=== PATIENT | male | born 1940 | race Caucasian/White ===

== ENCOUNTER 2017-12-03 13:03 | Emergency (ER) | payer MEDICARE, BC ==
[2017-12-03 13:49] VITALS: BP 135/69
--- NOTE | 2017-12-03 14:26 | UC ---
Respiratory Complaint HPI - HPI Summary HPI Summary: 4 WEEKS OF COUGH, CONGESTION, AND RHINITIS. MILD ST AND EAR PAIN. SUBJECTIVE FEVER A FEW DAYS AGO. FEELS HE IS GETTING WORSE. - History of Current Complaint Chief Complaint: UCRespiratory Stated Complaint: COLD SX'S Time Seen by Provider: 12/03/17 13:58 Hx Obtained From: Patient Onset/Duration: Gradual Onset, Lasting Weeks, Still Present Timing: Constant Severity Initially: Moderate Severity Currently: Moderate Pain Intensity: 0 Pain Scale Used: 0-10 Numeric Character: Cough: Nonproductive Aggravating Factors: Nothing Alleviating Factors: Nothing Associated Signs And Symptoms: Positive: Fever, URI, Nasal Congestion. Negative : Dyspnea, Wheezing - Allergies/Home Medications Allergies/Adverse Reactions: Allergies Allergy/AdvReac Type Severity Reaction Status Date / Time No Known Allergies Allergy Verified 12/03/17 13:42 Home Medications: Home Medications Clopidogrel TAB* [Plavix TAB*] 75 mg PO DAILY 12/03/17 [History Confirmed ] [place]-3 Acid Ethyl Esters [Lovaza] 1 tab DAILY 12/03/17 [History Confirmed 12/03] Rosuvastatin Calcium [Crestor] 5 mg QAM 12/03/17 [History Confirmed 12/03/17] PMH/Surg Hx/FS Hx/Imm Hx Cardiovascular History: Cardiac Disease, Hypertension - Surgical History Surgical History: Yes Surgery Procedure, Year, and Place: 2- CARDIAC STENT- [address] CARDIAC STENTS {SAFE 1.5T- SEE PAPER WORK IN PT'S EMR} @[facility]. 2 CARDIAC STENT - 01/03/14 -[facility] -CONDITIONAL5 FOR UP TP 3T SPATIAL GRADIENT 2200 OR LESS. BILATERAL CARPAL TUNNEL. Rt SHOULDER -RTC - Family History Known Family History: Positive: Hypertension - Social History Alcohol Use: Occasionally Substance Use Type: None Smoking Status (MU): Never Smoked Tobacco Review of Systems Constitutional: Fever, Fatigue ENT: Sore Throat, Ear Ache, Nasal Discharge Respiratory: Cough Cardiovascular: Negative Gastrointestinal: Negative All Other Systems Reviewed And Are Negative: Yes Physical Exam Triage Information Reviewed: Yes Appearance: Well-Appearing, No Pain Distress, Well-Nourished Vital Signs: Initial Vital Signs Temp 98.5 F 12/03/17 13:44 Pulse 52 12/03/17 13:44 Resp 16 12/03/17 13:44 BP 135/69 12/03/17 13:44 Pulse Ox 97 12/03/17 13:44 Vital Signs Reviewed: Yes Eyes: Positive: Conjunctiva Clear ENT: Positive: Hearing grossly normal, Pharynx normal, Other - TMS MOSTLY OCCULDED BY CERUMEN BUT VISUALIZED PORTION NORMAL Neck: Positive: Supple, Nontender, No Lymphadenopathy Respiratory Exam: Normal Cardiovascular Exam: Normal Abdomen Description: Positive: Soft Musculoskeletal: Positive: No Edema Neurological: Positive: Alert Psychological: Positive: Age Appropriate Behavior Skin: Negative: rashes UC Diagnostic Evaluation - Laboratory O2 Sat by Pulse Oximetry: 97 Respiratory Course/Dx - Differential Dx/Diagnosis Provider Diagnoses: 1. ACUTE BRONCHITIS Discharge - Sign-Out/Discharge Documenting (check all that apply): Discharge - Discharge Plan Condition: Stable Disposition: HOME Prescriptions: Azithromycin 500 mg PO DAILY #5 tab Codeine Phosphate/Guaifenesin [Codeine-Guaifen 10-100 mg/5 ml] 5 - 10 ml PO Q6H PRN #150 ml MDD 40ML PRN Reason: Cough Patient Education Materials: Acute Bronchitis (ED) Referrals: Shubham Bob MD [Primary Care Provider] - If Needed Additional Instructions: YOUR SYMPTOMS MAY BE VIRALLY MEDIATED BUT GIVEN THE LENGTH OF TIME YOU HAVE BEEN ILL WE WILL COVER YOU WITH ANTIBIOTICS. IF YOU START THE MEDICINE BE SURE TO TAKE IT FOR THE FULL COURSE. REST, HYDRATE, OTC MEDS NEEDED. WILL ALSO TREAT WITH COUGH MEDICINE. SEEK FOLLOW-UP WITH YOUR PCP IF YOU ARE NOT IMPROVING OVER THE NEXT 1-2 WEEKS. CERUMEN IMPACTION FOR MAINTENANCE, PUT SEVERAL DROPS OF OIL (MINERAL OIL, VEGETABLE OIL, OLIVE OIL , CANOLA OIL...) IN EACH EAR ONCE WEEKLY. THIS WILL HELP KEEP THE WAX SOFT AND WILL HOPEFULLY PREVENT BUILDUP IN THE FUTURE. IF CERUMEN BUILDUP STILL OCCURS IT WILL LIKELY BE EASIER TO IRRIGATE. ONCE YOUR EAR CANALS ARE CLEAR OF WAX YOU MAY USE A QTIP TO GENTLY AND CAREFULLY CLEAN YOUR EARS EVERY FEW DAYS TO KEEP WAX FROM BUILDING UP. DO NOT INSERT THE QTIP ANY FURTHER THAN THE DEPTH OF THE [place] [employer]. FOLLOW-UP WITH YOUR ENT IF NEEDED. - Billing Disposition and Condition Condition: STABLE Disposition: HOME
== END 2017-12-03 14:28 | disposition home or self-care (01) ==
LOC: UCCORT 13:03
DX: J20.9 Acute bronchitis, unspecified (principal); I51.9 Heart disease, unspecified; I10 Essential (primary) hypertension
CPT/HCPCS: 99212; G0463